=== PATIENT | male | born 1975 | race Caucasian/White ===

== ENCOUNTER 2016-11-19 16:52 | Emergency (ER) | payer SELFPAY ==
[~2016-11-19] VITALS: Ht 188 cm; Wt 120.2 kg
[2016-11-19 17:28] VITALS: BP 139/79
[2016-11-19] MEDS ORDERED: IBUP-1007 PO (17:33)
--- NOTE | 2016-11-19 17:34 | PHYS DOC ---
Past Medical History Past Medical History: No Pertinent History Past Surgical History: No Surgical History Alcohol Use: None Drug Use: None Adult General Chief Complaint Chief Complaint: UPPER EXTREMITY INJURY [facility] HPI Patient is a 41 year old presents to the emergency department with complaints of right shoulder pain for one week. He states he was moving some things when something "slammed into the shoulder". Patient states he doesn't know what fell onto his shoulder but notes that he has had persistent discomfort in the shoulder. He has not had loss range of motion. Review of Systems Review of Systems Constitutional: Denies fever or chills [] Eyes: Denies change in visual acuity, redness, or eye pain [] HENT: Denies nasal congestion or sore throat [] Respiratory: Denies cough or shortness of breath [] Cardiovascular: No additional information not addressed in HPI [] GI: Denies abdominal pain, nausea, vomiting, bloody stools or diarrhea [] : Denies dysuria or hematuria [] Musculoskeletal: shoulder pain Integument: Denies rash or skin lesions [] Neurologic: Denies headache, focal weakness or sensory changes [] Endocrine: Denies polyuria or polydipsia [] Allergies Allergies Allergies Coded Allergies Type Severity Reaction Last Updated Verified No Known Drug Allergies 11/03/13 No Physical Exam Physical Exam Constitutional: Well developed, well nourished, no acute distress, non-toxic appearance. [] Neck: Normal range of motion, no tenderness, supple, no stridor. [] Cardiovascular:Heart rate regular rhythm, no murmur [] Lungs & Thorax: Bilateral breath sounds clear to auscultation [] Skin: Warm, dry, no erythema, no rash. [] Back: No tenderness, no CVA tenderness. [] Extremities: Upper extremity exam, no swelling, no ecchymosis. Full range of motion without difficulty. He is diffusely tender in the right shoulder, but does allow for active and passive range of motion. Neurovascular is intact distally. He has no bony tenderness on exam. Neurologic: Alert and oriented X 3, normal motor function, normal sensory function, no focal deficits noted. [] Psychologic: Affect normal, judgement normal, mood normal. [] EKG EKG [] Radiology/Procedures Radiology/Procedures [] Course & Med Decision Making Course & Med Decision Making Pertinent Labs and Imaging studies reviewed. (See chart for details) [] Dragon Disclaimer Dragon Disclaimer This electronic medical record was generated, in whole or in part, using a voice recognition dictation system. Departure Departure Impression: Primary Impression: Right shoulder strain Disposition: 01 HOME, SELF-CARE Condition: STABLE Referrals: BERTO SAMUEL MD (PCP) Patient Instructions: Arm Sling Use, [id number], Shoulder Pain Scripts Ibuprofen (IBUPROFEN) 600 Mg Tablet 600 MG PO PRN Q6HRS Y for INFLAMMATION, #20 TAB Prov: LEVON INGRAM APRN 11/19/16 Problem Qualifiers Primary Impression: Right shoulder strain Encounter type: initial encounter Qualified Codes: S46.911A - Strain of unspecified muscle, fascia and tendon at shoulder and upper arm level, right arm , initial encounter LEVON INGRAM APRN Nov 19, 2016 17:34
== END 2016-11-19 17:44 | disposition home or self-care (01) ==
LOC: ER 16:52
DX: S46.911A Strain of unspecified muscle, fascia and tendon at shoulder and upper arm level, right arm, initial encounter (principal); W22.8XXA Striking against or struck by other objects, initial encounter; Y93.89 Activity, other specified; Y92.89 Other specified places as the place of occurrence of the external cause; Y99.8 Other external cause status
CPT/HCPCS: 99282

== ENCOUNTER 2018-02-03 17:43 | Emergency (ER) | payer OTHER ==
[~2018-02-03] VITALS: Ht 188 cm; Wt 124.7 kg
[~2018-02-03 17:43] MED LIST: IBUP-1007 PO
[2018-02-03 18:39] VITALS: BP 126/73
--- NOTE | 2018-02-03 19:19 | PHYS DOC ---
Past Medical History Past Medical History: No Pertinent History Past Surgical History: No Surgical History Alcohol Use: None Drug Use: None Adult General Chief Complaint Chief Complaint: HAND PROBLEM HPI HPI Patient is a 42 year old male who states he was lifting something in to his truck and felt a "pop" in the back of his R hand. He has had pain throughout the day and it is starting to hurt up the arm. He is R hand dominant. He denies prior injuries to this hand before. Review of Systems Review of Systems Constitutional: Denies fever or chills Respiratory: Denies cough or shortness of breath Cardiovascular: Denies chest pain. GI: Denies abdominal pain, nausea, vomiting, bloody stools or diarrhea Musculoskeletal: Denies back pain. Reports R wrist and hand pain. Integument: Denies rash or skin lesions Neurologic: Denies headache, focal weakness or sensory changes All other systems were reviewed and found to be within normal limits, except as documented in this note. Allergies Allergies Allergies Coded Allergies Type Severity Reaction Last Updated Verified No Known Drug Allergies 11/03/13 No Physical Exam Physical Exam Constitutional: Well developed, well nourished, no acute distress, non-toxic appearance. Neck: Normal range of motion, no tenderness, supple, no stridor. Cardiovascular:Heart rate regular rhythm, no murmur Lungs & Thorax: Bilateral breath sounds clear to auscultation Abdomen: Bowel sounds normal, soft, no tenderness, no masses, no pulsatile masses. Skin: Warm, dry, no erythema, no rash. No obvious contusion. Skin is intact. Mild edema noted at site of pain. Back: No tenderness, no CVA tenderness. Extremities: No tenderness, no cyanosis, no clubbing, ROM intact. R hand and wrist, full ROM with tenderness. Mild edema noted on back of R hand. Cap refill intact. No signs of compartment syndrome. Neurologic: Alert and oriented X 3, normal motor function, normal sensory function, no focal deficits noted. Psychologic: Affect normal, judgement normal, mood normal. Current Patient Data Vital Signs Vital Signs Date Time Temp Pulse Resp B/P (MAP) Pulse Ox O2 Delivery O2 Flow Rate FiO2 02/03/18 18:39 97.7 62 18 126/73 (90) 96 Room Air 97.7 EKG EKG [] Radiology/Procedures Radiology/Procedures Wrist and Hand xrays were negative for acute findings. Course & Med Decision Making Course & Med Decision Making Pt's hand wrapped with DENISE wrap. Discussed that there is no obvious bone abnormality at this time but still risk for occult fx or injury to soft tissue and recommend follow up with Orthopedics if symptoms persist. Pt to [facility]ICE and return if symptoms worsen at anytime. Dragon Disclaimer Dragon Disclaimer This electronic medical record was generated, in whole or in part, using a voice recognition dictation system. Departure Departure Impression: Primary Impression: Hand sprain Disposition: HOME, SELF-CARE Condition: STABLE Referrals: BERTO SAMUEL MD (PCP) OVI TABOR MD Patient Instructions: Hand Contusion, [id number] Additional Instructions: Ice, Rest and if not improving, follow up with orthopedics. Scripts Naproxen (NAPROSYN) 500 Mg Tablet 1 TAB PO BID, #20 TAB 1 Refill Prov: BOOM REY 02/03/18 BOOM REY Feb 03, 2018 19:19
--- NOTE | 2018-02-03 19:58 | RAD ---
Three-view right hand and wrist radiographs 02/03/2018 CLINICAL HISTORY: Lifting injury to the right hand and wrist with pain. PA, lateral and oblique digital radiographs of the right wrist were obtained. PA and lateral oblique digital radiographs of the right hand were obtained. No no fracture or dislocation of the right hand or right wrist is seen. IMPRESSION: No fracture or dislocation of the right hand or wrist is seen. Electronically signed by: Ulysses Woodruff MD (02/03/2018 7:55 PM) [facility]
--- NOTE | 2018-02-03 19:58 | RAD ---
Three-view right hand and wrist radiographs 02/03/2018 CLINICAL HISTORY: Lifting injury to the right hand and wrist with pain. PA, lateral and oblique digital radiographs of the right wrist were obtained. PA and lateral oblique digital radiographs of the right hand were obtained. No no fracture or dislocation of the right hand or right wrist is seen. IMPRESSION: No fracture or dislocation of the right hand or wrist is seen. Electronically signed by: Ulysses Woodruff MD (02/03/2018 7:55 PM) [facility]
[2018-02-03] MEDS ORDERED: NAPR-683 PO (20:05)
== END 2018-02-03 20:19 | disposition home or self-care (01) ==
LOC: ER 17:43
DX: S63.91XA Sprain of unspecified part of right wrist and hand, initial encounter (principal); X50.9XXA Other and unspecified overexertion or strenuous movements or postures, initial encounter; Y93.89 Activity, other specified; Y92.89 Other specified places as the place of occurrence of the external cause; Y99.8 Other external cause status
CPT/HCPCS: 73110; 73130; 99284

== ENCOUNTER 2019-01-26 13:18 | Emergency (ER) | payer OTHER ==
[~2019-01-26] VITALS: Ht 188 cm; Wt 131.5 kg
[~2019-01-26 13:18] MED LIST changes: +NAPR-683 PO
[2019-01-26 13:27] VITALS: BP 173/98
[2019-01-26] MEDS ORDERED: ALBU2.5V8 INH (13:57)
[2019-01-26] MEDS ORDERED: HYDR5SUS PO (13:57)
--- NOTE | 2019-01-26 13:57 | PHYS DOC ---
Past Medical History Past Medical History: No Pertinent History Past Surgical History: No Surgical History Alcohol Use: None Drug Use: None Adult General Chief Complaint Chief Complaint: FEVER HPI HPI Patient is a 43 year old female who presents with complaining of fever and cough. Patient complaining of productive cough with clear sputum since yesterday and fever of 101 this in the morning with nasal congestion, chest soreness during cough, sore throat. Patient denies vomiting, myalgia, neck pain, sick contacts. Patient took 2 Tylenol about 4 hours prior to arrival to ER. Review of Systems Review of Systems Constitutional: Reports fever Eyes: Denies change in visual acuity, redness, or eye pain [] HENT: Reports nasal congestion and sore throat Respiratory: Reports cough and shortness of breath Cardiovascular: No additional information not addressed in HPI [] GI: Denies abdominal pain, nausea, vomiting, bloody stools or diarrhea [] : Denies dysuria or hematuria [] Musculoskeletal: Denies back pain or joint pain [] Integument: Denies rash or skin lesions [] Neurologic: Denies headache, focal weakness or sensory changes [] Endocrine: Denies polyuria or polydipsia [] All other systems were reviewed and found to be within normal limits, except as documented in this note. Allergies Allergies Allergies Coded Allergies Type Severity Reaction Last Updated Verified No Known Drug Allergies 11/03/13 No Physical Exam Physical Exam Constitutional: Well developed, well nourished, mild distress, non-toxic appearance. [] HENT: Normocephalic, atraumatic. Eyes: PERRLA, EOMI, conjunctiva normal, no discharge. [] Neck: Normal range of motion, no tenderness, supple, no stridor. [] Cardiovascular:Heart rate regular rhythm, no murmur [] Lungs & Thorax: Bilateral breath sounds clear to auscultation [] Skin: Warm, dry, no erythema, no rash. [] Back: No tenderness, no CVA tenderness. [] Extremities: No tenderness, no cyanosis, no clubbing, ROM intact, no edema. [] Neurologic: Alert and oriented X 3, no focal deficits noted. [] Psychologic: Affect normal, judgement normal, mood normal. [] Current Patient Data Vital Signs Vital Signs Date Time Temp Pulse Resp B/P (MAP) Pulse Ox O2 Delivery O2 Flow Rate FiO2 01/26/19 13:27 99.2 95 16 173/98 (123) 96 Room Air 99.2 EKG EKG [] Radiology/Procedures Radiology/Procedures [] Course & Med Decision Making Course & Med Decision Making Evaluation of patient in ER showed 43-year-old nonsmoking male patient with comp laining of cough on congestion and sore throat for 2 days with fever up to 101. Patient was afebrile in the ER. Plan discharge patient home with diagnosis of viral upper respiratory infection. I've spoken with the patient and/or caregivers. I've explained the patient's condition, diagnosis and treatment plan based on information available to me at this time. I've answered the patient's and/or caregivers questions and addressed any concerns. The patient and/or caregivers have a good understanding the patient's diagnosis, condition and treatment plan as can be expected at this point. Vital signs have been stabilized. The patient's condition is stable for discharge from the emergency department. The patient will pursue further outpatient evaluation with her primary care provider or other designated consulting physician as outlined in the discharge instructions. Patient and/or caregivers are agreeable to this plan of care and follow-up instructions have been explained in detail. The patient and/or caregivers have received these instructions in written format and expressed understanding of these discharge instructions. The patient and her caregivers are aware that if any significant change in condition or worsening of symptoms should prompt him to immediately return to this of the closest emergency department. If an emergent department is not readily available I would e ncourage him to call 911. Eliezer Disclaimer Dragon Disclaimer This electronic medical record was generated, in whole or in part, using a voice recognition dictation system. Departure Departure Impression: Primary Impression: Viral upper respiratory infection Disposition: HOME, SELF-CARE (@0248) Condition: STABLE Referrals: BERTO SAMUEL MD (PCP) Patient Instructions: Fever, Adult, Upper Respiratory Infection, Adult Additional Instructions: Drink plenty of liquids Follow-up with your primary care physician in 3-5 days Return to ER if not getting better Scripts Hydrocodone/Chlorphen Polis (HYDROCODONE-CHLORPHENIRAM SUSP) 5 Ml Mounika.er.12h 5 ML PO PRN Q12HR PRN for COUGH, #60 ML 0 Refills Prov: JONATHON WHITE MD 01/26/19 Albuterol Sulfate (PROAIR HFA INHALER) 8.5 Gm Hfa.aer.ad 2 PUFF INH PRN Q6HRS PRN for SHORTNESS OF BREATH, #1 INHALER 0 Refills Prov: JONATHON WHITE MD 01/26/19 JONATHON WHITE MD Jan 26, 2019 13:57
== END 2019-01-26 14:03 | disposition home or self-care (01) ==
LOC: ER 13:18
DX: J06.9 Acute upper respiratory infection, unspecified (principal)
CPT/HCPCS: 99283

== ENCOUNTER 2019-05-21 01:48 | Emergency (ER) | payer SELFPAY ==
[~2019-05-21] VITALS: Ht 185.4 cm; Wt 131.5 kg
[~2019-05-21 01:48] MED LIST changes: +ALBU2.5V8 INH; +HYDR5SUS PO
--- NOTE | 2019-05-21 02:44 | RAD ---
PA and lateral chest x-ray HISTORY: Cough and shortness of breath. COMPARISON: Chest x-ray February 26, 2016. FINDINGS: Heart size normal. Mediastinal silhouette is normal. No pneumothorax, pleural opacities or pleural effusions. Bones are unremarkable. IMPRESSION: No acute process. Electronically signed by: Escobar Cantu MD (05/21/2019 2:41 AM) [facility]
[2019-05-21] MEDS ORDERED: AZIT250T PO (02:54)
[2019-05-21] MEDS ORDERED: PRED20TA PO (02:54)
--- NOTE | 2019-05-21 02:54 | PHYS DOC ---
Past Medical History Past Medical History: No Pertinent History, Other (heart murmur) Past Surgical History: No Surgical History Alcohol Use: None Drug Use: None Adult General Chief Complaint Chief Complaint: COUGH HPI HPI Patient is a 43 year old MALE who presented to ER today for evaluation of cough with productive yellow sputum for 2 days. Patient denies any trouble breathing, no sore throat, no fever, no headache. Patient denies any chest pain. Patient denies any abdominal pain. he is not a smoker. he denies any medical problem, he is not on any medication at this time. aLL OTHER ros IS NEGATIVE UNLESS OTHERWISE NOTED IN hpi Review of Systems Review of Systems See above Allergies Allergies Allergies Coded Allergies Type Severity Reaction Last Updated Verified No Known Drug Allergies 11/03/13 No Physical Exam Physical Exam See above Constitutional: Well developed, well nourished, no acute distress, non-toxic appearance. [] HENT: Normocephalic, atraumatic, bilateral external ears normal, oropharynx moist, no oral exudates, nose normal. [] Eyes: PERRLA, EOMI, conjunctiva normal, no discharge. [] Neck: Normal range of motion, no tenderness, supple, no stridor. [] Cardiovascular:Heart rate regular rhythm, systolic heart murmur present. Lungs & Thorax: Bilateral breath sounds clear to auscultation [] Abdomen: Bowel sounds normal, soft, no tenderness, no masses, no pulsatile masses. [] Skin: Warm, dry, no erythema, no rash. [] Back: No tenderness, no CVA tenderness. [] Extremities: No tenderness, no cyanosis, no clubbing, ROM intact, no edema. [] Neurologic: Alert and oriented X 3, normal motor function, normal sensory function, no focal deficits noted. [] Psychologic: Affect normal, judgement normal, mood normal. [] Current Patient Data Vital Signs Vital Signs Date Time Temp Pulse Resp B/P (MAP) Pulse Ox O2 Delivery O2 Flow Rate FiO2 05/21/19 03:03 83 108/68 (81) 99 Room Air 05/21/19 01:56 98.7 16 98.7 EKG EKG [] Radiology/Procedures Radiology/Procedures [][facility] [address] [address] IMAGING REPORT Signed PATIENT: JUAN PABLO SOLORZANO ACCOUNT: [id number] : 1975 LOCATION: ER AGE: 43 SEX: M EXAM STATUS: PRE ER ORD. PHYSICIAN: IMELDA RAMIREZ DO REASON: COUGH, SOA PROCEDURE: CHEST PA & LATERAL PA and lateral chest x-ray HISTORY: Cough and shortness of breath. COMPARISON: Chest x-ray February 26, 2016. FINDINGS: Heart size normal. Mediastinal silhouette is normal. No pneumothorax, pleural opacities or pleural effusions. Bones are unremarkable. IMPRESSION: No acute process. Electronically signed by: Brant Cantu MD (05/21/2019 2:41 AM) [facility] DICTATED and SIGNED BY: BRANT CANTU MD DATE: 05/21/19 0241 Course & Med Decision Making Course & Med Decision Making Pertinent Labs and Imaging studies reviewed. (See chart for details) [] Dragon Disclaimer Dragon Disclaimer This electronic medical record was generated, in whole or in part, using a voice recognition dictation system. Departure Departure Impression: Primary Impression: Bronchitis Disposition: HOME, SELF-CARE Condition: STABLE Referrals: BERTO SAMUEL MD (PCP) FOLLOW UP WITH YOUR DOCTOR THIS WEEK FOR REEVALUATION IF NOT BETTER IN 2 DAYS. Patient Instructions: Acute Bronchitis Scripts Prednisone (PREDNISONE) 20 Mg Tablet 2 TAB PO DAILY for 5 Days, #10 TAB Prov: IMELDA RAMIREZ DO 05/21/19 Azithromycin (ZITHROMAX) 250 Mg Tablet 1 PKG PO UD, #6 TAB Prov: IMELDA RAMIREZ DO 05/21/19 IMELDA RAMIREZ DO May 21, 2019 02:54
[2019-05-21 03:03] VITALS: BP 108/68
== END 2019-05-21 03:02 | disposition home or self-care (01) ==
LOC: ER 01:48
DX: J40 Bronchitis, not specified as acute or chronic (principal)
CPT/HCPCS: 71046; 99284

== ENCOUNTER 2019-07-20 10:51 | Emergency (ER) | payer SELFPAY ==
[~2019-07-20] VITALS: Ht 185.4 cm; Wt 136.0 kg
[~2019-07-20 10:51] MED LIST changes: +AZIT250T PO; +PRED20TA PO
[2019-07-20 11:17] VITALS: BP 159/87
--- NOTE | 2019-07-20 12:05 | PHYS DOC ---
Past Medical History Past Medical History: No Pertinent History, Other Past Surgical History: No Surgical History Smoking Status: Never Smoker Alcohol Use: None Drug Use: None Adult General Chief Complaint Chief Complaint: HAND PROBLEM HPI HPI Patient is a 44 year old male who presents to the ED today with an abnormal growth on the left thumb that he noted 1 month ago. Review of Systems Review of Systems Constitutional: Denies fever or chills [] Musculoskeletal: Denies back pain or joint pain [] Integument: Reports abnormal growth on the left thumb Neurologic: Denies headache, focal weakness or sensory changes [] All other systems were reviewed and found to be within normal limits, except as documented in this note. Allergies Allergies Allergies Coded Allergies Type Severity Reaction Last Updated Verified No Known Drug Allergies 11/03/13 No Physical Exam Physical Exam Constitutional: Well developed, well nourished, no acute distress, non-toxic a ppearance. [] Skin: Warm, dry, left medial thumb with approximately 0.5 cm of tissue overgrowth above the skin mid phalanx. Area has no signs of infection. Back: No tenderness, no CVA tenderness. [] Extremities: No tenderness, no cyanosis, no clubbing, ROM intact, no edema. [] Neurologic: Alert and oriented X 3, normal motor function, normal sensory function, no focal deficits noted. [] Psychologic: Affect normal, judgement normal, mood normal. [] Current Patient Data Vital Signs Vital Signs Date Time Temp Pulse Resp B/P (MAP) Pulse Ox O2 Delivery O2 Flow Rate FiO2 07/20/19 11:17 97.4 81 16 159/87 (111) 96 Room Air 97.4 EKG EKG [] Radiology/Procedures Radiology/Procedures [] Course & Med Decision Making Course & Med Decision Making Pertinent Labs and Imaging studies reviewed. (See chart for details) This is a 44-year-old male patient presenting to the ED today with an abnormal tissue growth on the left medial thumb. Recommended following up with a cone machine feeder specifically for removal and biopsy. Dragon Disclaimer Dragon Disclaimer This electronic medical record was generated, in whole or in part, using a voice recognition dictation system. Departure Departure Impression: Primary Impression: Abnormal skin growth Disposition: 01 HOME, SELF-CARE Condition: STABLE Referrals: BERTO SAMUEL MD (PCP) JULIOCESAR GONZALEZ MD follow up in 1-2 weeks Patient Instructions: Excision of Skin Lesions Additional Instructions: You have an abnormal tissue growth on your left medial thumb. Please follow-up with the provided cone machine feeder for tissue removal and biopsy. HAM NOLEN APRN Jul 20, 2019 12:05
== END 2019-07-20 12:12 | disposition home or self-care (01) ==
LOC: ER 10:51
DX: R22.32 Localized swelling, mass and lump, left upper limb (principal)
CPT/HCPCS: 99281